=== PATIENT | male | born 1980 | race African-American/Black ===

== ENCOUNTER 2016-09-23 16:03 | Emergency (ER) | payer BC ==
[2016-09-23 16:18] VITALS: BP 166/95; PULSE 70; RESP 16; TEMP 98.6; O2SAT 94
--- NOTE | 2016-09-23 17:49 | UCPHY ---
[id number] in his right ear which began over 2 weeks ago. He was seen here on the 12 of September in diagnosis with bullous myringitis and given a Z- Edward. The ear is less painful now but symptoms persist. He has some postnasal drip but no actual nasal congestion or rhinitis. He has no cough at this time but did developed a sore throat this morning. He denies fever, shortness of breath or chest pain. Smoking Status: Never smoked Physical Exam: GENERAL: Well-appearing, well-nourished and in no acute distress. HEAD: Atraumatic, normocephalic. EYES: sclera anicteric, conjunctiva are normal. ENT: The left tympanic membrane is normal. The right shows bulla primarily in the inferior to quadrants. There is associated erythema as well. oropharynx clear without exudates. Moist mucous membranes. NECK: Normal range of motion, supple without lymphadenopathy or JVD. LUNGS: The patient is in no respiratory distress HEART: Regular rate and rhythm EXTREMITIES: Normal range of motion, NEUROLOGICAL: Cranial nerves II through XII grossly intact. Normal speech, normal gait. PSYCH: Normal mood, normal affect. SKIN: Warm, dry, normal turgor, no visible rashes or lesions. Constitutional: Initial Vital Signs Temperature (C) 37.0 C 09/23/16 16:11 Heart Rate 70 09/23/16 16:11 Respiratory Rate 16 09/23/16 16:11 Blood Pressure 166/95 H 09/23/16 16:11 O2 Sat (%) 94 09/23/16 16:11 O2 Delivery Mode Room Air Allergies/Adverse Reactions: No Known Allergies Allergy (Verified 09/23/16 16:18) Home Medications: Medication Instructions Recorded Albuterol Hfa Anes Only [Proair 2 puffs IH Q4 PRN #1 mdi 09/12/16 Hfa Icu (*)] Azithromycin [Zithromax] 250 mg PO DAILY #6 tab 09/12/16 AZITHROMYCIN [Z-PACK] 250 mg PO DAILY #1 packet 09/23/16 Medical Decision Making Differential Diagnosis: The patient was given an additional course of azithromycin and advised follow up with the ENT if his symptoms have not cleared when the course is completed. Departure - Departure Disposition: Home, Routine, Self-Care Clinical Impression: Bullous myringitis of right ear Condition: Good Instructions: Otitis Media (ED) Additional Instructions: If your symptoms have not resolved at the end of the course of antibiotics you should be seen by the [facility] whose name is provided to you in these pages. Adult Pain & Fever Control: We recommend Acetaminophen (Tylenol) and Ibuprofen (Motrin, Advil) for pain and fever control. When fever is high or pain severe, both drugs can be used at the same time, but at different intervals. Please note the time differences. Your dose is: Acetaminophen [650]mg every 4 to 6 hours ibuprofen [600]mg every [6] hours with food OR naproxen Sodium (Aleve) [440]mg every 12 hours. Note: do not take Acetaminophen with Hydrocodone (Vicodin, Lortab) or Oxycodone (Percocet). These medications also contain Acetaminophen. No more than 3000 mg of Acetaminophen should be taken in 24 hours (for an adult) . The maximal dose of ibuprofen that it is safe in a 24-hour period is 2400 mg. You may take 400 mg every 4 hours, 600 mg every 6 hours or 800 mg every 8 hours safely. Referrals: Robyn Pearson MD [Medical Doctor] - As per Instructions Prescriptions: AZITHROMYCIN [Z-PACK] 250 mg PO DAILY #1 packet - PQRS PQRS Measurement: Not applicable
== END 2016-09-23 18:00 | disposition home or self-care (01) ==
LOC: CED 16:03
DX: H66.91 Otitis media, unspecified, right ear (principal)
CPT/HCPCS: 99213-PO; G0463-PO